=== PATIENT | female | born 1955 | race Caucasian/White ===

== ENCOUNTER 2025-07-09 14:25 | Outpatient (OUT) | payer MEDICARE, SELFPAY ==
[2025-07-09 15:20] LABS: Hematocrit 37.1 % (36.0-48.0); Hemoglobin 12.6 g/dL (12.0-16.0); Immature Granulocytes Abs Auto 0.01 10^3/uL (0.00-0.03); Immature Granulocytes Pct Auto 0.2 % (0.0-0.5); Lymphocytes Absolute Auto 1.6 10^3/uL (1.2-3.8); Mean Corpuscular HGB Conc 34.0 g/dL (29.9-35.2); Mean Corpuscular Hemoglobin 32.2 pg (26.7-34.0); Mean Corpuscular Volume 94.9 fL (81.0-99.0); Platelet Count 295 10^3/uL (150-450); Red Blood Count 3.91 10^6/uL (4.20-5.40); White Blood Count 6.1 10^3/uL (4.0-11.0)
--- NOTE | 2025-07-09 15:24 | PM.PRESUREVA ---
History of Present Illness History of Present Illness Chief complaint: Right kidney Stones Narrative: Patient presents for presurgical testing. Please see HPI from Dr. Denny dated June 29, 2025. Review of Systems ROS Narrative Please see ROS from Dr. Denny dated June 29, 2025. 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 (ICD-10) Melanoma ?C43.9 - Malignant melanoma of skin, unspecified (ICD-10) Knee pain ?M25.569 - Pain in unspecified knee (ICD-10) Back pain ?M54.9 - Dorsalgia, unspecified (ICD-10) Arthritis ?M19.90 - Unspecified osteoarthritis, unspecified site (ICD-10) Skin cancer ?C44.90 - Unspecified malignant neoplasm of skin, unspecified (ICD-10) Neck pain ?M54.2 - Cervicalgia (ICD-10) Pneumonia ?J18.9 - Pneumonia, unspecified organism (ICD-10) Vertigo ?R42 - Dizziness and giddiness (ICD-10) Palpitations ?R00.2 - Palpitations (ICD-10) PSVT (paroxysmal supraventricular tachycardia) ?I47.10 - Supraventricular tachycardia, unspecified (ICD-10) Kidney stone ?N20.0 - Calculus of kidney (ICD-10) Surgical History (Updated 07/09/25 @ 15:23 by Linda Robles NP) H/O lymph node excision ?Z98.890 - Other specified postprocedural states (ICD-10) History of tonsillectomy ?Z90.89 - Acquired absence of other organs (ICD-10) History of colonoscopy ?Z98.890 - Other specified postprocedural states (ICD-10) S/P epidural steroid injection ?Z92.241 - Personal history of systemic steroid therapy (ICD-10) History of surgery on arm ?Z98.890 - Other specified postprocedural states (ICD-10) History of radiofrequency ablation (RFA) of nerve of lumbar spine ?Z98.890 - Other specified postprocedural states (ICD-10) S/P cystoscopy ?Z98.890 - Other specified postprocedural states (ICD-10) History of foot surgery ?Z98.890 - Other specified postprocedural states (ICD-10) Family History (Updated 07/09/25 @ 14:56 by Linda Robles NP) Other Atrial fibrillation Congestive heart failure (CHF) Family history of Parkinson disease Family history of cancer Family history of coronary artery disease Family history of hypertension Family history of myocardial infarction Family history of renal failure Family history of stroke Social History (Updated 07/09/25 @ 14:49 by Linda Robles NP) Within the past year, how often did you have a drink containing alcohol: never Score interpretation: A score less than 3 is consistent with normal alcohol consumption. 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 Highest level of school completed/degree received: Master's degree Meds Home Medications and Allergies Home Medications ?Medication ?Instructions ?Recorded ?Confirmed ?Type cholecalciferol (vitamin D3) 10 10 mcg PO DAILY 07/09/25 07/09/25 History mcg (400 unit) capsule coenzyme Q10 30 mg capsule (Co 30 mg PO DAILY 07/09/25 07/09/25 History Q-10) lutein 6 mg capsule 6 mg PO DAILY 07/09/25 07/09/25 History magnesium aspartate HCl 61 mg (615 61 mg PO DAILY 07/09/25 07/09/25 History mg) tablet,delayed release (Maginex) Allergies Allergy/AdvReac Type Severity Reaction Status Date / Time adhesive tape Allergy Rash Verified 07/09/25 14:43 calcium Allergy kidney Verified 07/09/25 14:43 stones cat gut sutures Allergy abscess Uncoded 07/09/25 14:43 Exam Narrative Exam Narrative: Constitutional: Awake, alert, comfortable, well-appearing, appears much younger than stated age, nontoxic, interactive, vital signs as charted Head: Normocephalic, atraumatic Neck: Supple, normal appearance, normal range of motion, no meningeal signs, no lymphadenopathy Respiratory: No respiratory distress, breath sounds clear Cardiovascular: Regular rate and rhythm, strong and regular heart tones Abdomen: Nontender, normal bowel sounds, soft, no CVA tenderness Musculoskeletal: Normal gait, no swelling or edema Skin: No rashes or induration, no lesions, only visible skin inspected Neuro: No neurological deficits, normal sensation Psychiatric: Oriented ?3, normal affect Assessment and Plan Assessment and Plan (1) Kidney stone: Plan Right ESWL, possible cystoscopy, right stent placement scheduled with Dr. Denny July 16, 2025.
[2025-07-09 15:41] LABS: INR 1.00; Partial Thromboplastin Time 25.1 sec (22.3-36.2); Prothrombin Time 10.6 sec (9.0-11.6)
[2025-07-09 15:49] LABS: Anion Gap 12.0; Blood Urea Nitrogen 23.0 mg/dL (7.0-18.0); Calcium 9.1 mg/dL (8.5-10.1); Carbon Dioxide 30.0 mmol/L (21.0-32.0); Chloride 106 mmol/L (98-107); Estimated GFR (African America >60 (>=60 mL/min/1.73m^2); Estimated GFR (Non-African Ame >60 (>=60 mL/min/1.73m^2); Glucose 96 mg/dL (74-106); Potassium 4.0 mmol/L (3.5-5.1); Sodium 144 mmol/L (136-145)
== END 2025-07-09 14:26 | disposition home or self-care (01) ==
PROVIDERS: PCP Family Medicine; Visit Provider Urology
DX: Z01.812 Encounter for preprocedural laboratory examination (principal); Z01.818 Encounter for other preprocedural examination; N20.0 Calculus of kidney
CPT/HCPCS: 80048; 85025; 85610; 85730; G0463

== ENCOUNTER 2025-07-16 08:48 | Day surgery (SDC) | payer MEDICARE, SELFPAY ==
[2025-07-09 15:20] VITALS: BP 131/84; PULSE 73; TEMP 36.4; O2SAT 98; BMI 19.1
[2025-07-16] VITALS (11 sets, daily range): BP systolic 122–158; BP diastolic 65–92; PULSE 60–85; TEMP 36.3; O2SAT 95–100; BMI 19.1
--- NOTE | 2025-07-16 08:57 | XR_ITS ---
The [address] [address] Patient Name: TRENT SHUKLA MRN: [id number] date: 1955 Sex: F [facility]igned [facility] Current Patient [facility] Accession/Order Number: [id number] Exam Date: 07/16/2025 08:52 Report Date: 07/16/2025 09:08 At the request of: TAMMY SANTIAGO MD Procedure: XR abdomen 1V SINGLE VIEW ABDOMEN COMPARISON: None CLINICAL DATA: Presurgical evaluation for bilateral nephrolithiasis. Supine view the abdomen and pelvis was obtained. There is air and stool within the colon. There is also air within nondistended small bowel. No soft tissue masses are noted. The right kidney is appears ptotic. There are calcifications in the area which may be stones measuring up to 5 mm in size. There are also suspected calcified stones at the left kidney measuring 5 mm. There is dextroscoliotic curvature and degenerative change at the spine. XR/XR abdomen 1V IMPRESSION: SUSPECTED BILATERAL NEPHROLITHIASIS. Impression dictated by: Debbie Morse M.D. 07/16/2025 9:08 AM Dictation Location: [place] [address] Electronically authenticated by: [id number] Y Date: 07/16/2025 09:08
[2025-07-16] MEDS: CEFAZOLIN SODIUM 2 GM/50 ML D5W PREMIX IV (11:11)
--- NOTE | 2025-07-16 12:13 | P.URON_ITS ---
Urology Surgery Operative Note Operative Note Procedure Date: 07/16/25 Time Out Performed: yes Pre-op Diagnosis: Right nephrolithiasis Post-op Diagnosis: same as pre-op Procedures performed: 1. Right ESWL. Anesthesia: General-LMA Primary Surgeon: Alphonse Denny Complications: None Estimated blood loss (mL): 0 Findings: Right nonobstructing renal calculi Specimens: None Drains: None Indications for Procedures: This lady has 2 stones in her right kidney. The larger 1 is just about a centimeter in size and in the upper pole. The smaller 1 is in the lower pole. She now presents for right ESWL and possible cystoscopy right stent placement. She has signed an informed consent after risks were explained. Some of these risks include bleeding, perinephric hematoma, infection and anesthesia to name a few. Detailed description of Procedure: The patient was brought to the Operating Room and placed on Siemens electromagnetic lithotripsy treatment table in the supine position. SCDs were placed on their lower extremities and turned on and functioning during the entire case. Timeout was done by all parties in the room. We all agreed upon the patient's identification and the planned procedures for this patient. General Anesthesia was then administered via LMA. Treatment head was then brou ght to the patient's correct side. While using flourscopy the larger upper pole right stone was identified and lined up into the crosshairs. We then began applying shocks. We started at a power level 2.0 and she had some rather immediate ectopy. We had to stop the procedure and rotate the table and restart. We are able to deliver more shocks but as we raised the power level to 2.5 she developed more ectopy. We had to stop rotate the table and we were able to finish the procedure at power level 2.2. Intermittent fluoroscopy revealed that the stone was steadily fragmenting. It was spreading out and turning dramatically synthetic filament extruder in intensity. We applied a total of 3000 shocks. We seem to to have satisfactory fragmentation. The small lower pole stone was still visible and did not fragment. The procedure was then terminated. She was then transferred to a [facility] bed and wheeled to PACU in stable condition.
--- NOTE | 2025-07-16 13:32 | PC.NURSE ---
1325; pt voids without difficulty,urine watermelon colored
== END 2025-07-16 13:40 | disposition home or self-care (01) ==
LOC: SURGOUT 08:48
PROVIDERS: PCP Family Medicine; Visit Provider Urology
PROC: (CPT 50590; principal; 2025-07-16 10:05)
DX: N20.0 Calculus of kidney (principal); R31.9 Hematuria, unspecified; M85.80 Other specified disorders of bone density and structure, unspecified site; Z85.820 Personal history of malignant melanoma of skin; I47.10 Supraventricular tachycardia, unspecified
CPT/HCPCS: 50590; 36415; 74018; J0690; J1100; J1885; J2405; J2704; J3010

== ENCOUNTER 2025-08-03 13:03 | Outpatient (OUT) | payer MEDICARE, BC, SELFPAY ==
--- OUTSIDE RECORDS SUMMARY | 2025-08-03 13:09 | XMS_ITS | Clinical Summary ---
Author Organization [facility] Address [address] [place] [address] Phone Care Team Providers Care Tattoo Identifier Name Role Phone Meghann Debbie Griffin GARCIA Primary Care Provider [phone] Allergies Active AllergyReactionsCriticalityNoted DateCommentsAdhesive Tape-SiliconesOther ,PtuyOpzstv74/01/2008 Patient allergy to tape and steri strips Calcium TzxbhazqvKxmtpEypz11/06/2022 Other Reaction(s): Kidney stone causes increased number of kidney stones causes increased number of kidney stones SbglmrbXllqj50/06/2025 Non-healing Medications MedicationSigDispense QuantityRefillsLast FilledStart DateEnd DateStatus cholecalciferol (Vitamin D-3) 50 mcg (2,000 units) capsule Take 1 capsule (50 mcg) by mouth once a week.Active lutein-zeaxanthin 25-5 mg capsule Take 40 mg by mouth once daily.Active coenzyme Q-10 100 mg capsule Take 1 capsule (100 mg) by mouth once daily.Active MAGNESIUM GLYCINATE ORAL Take 1 tablet by mouth early in the morning..Active magnesium oxide 500 mg capsule Take 400 mg by mouth once daily.07/08/2025Discontinued(Therapy completed) Active Problems ProblemNoted DateDiagnosed DateBody mass index (BMI) of 19.9 or less in adult 07/08/2025Never smoked lecdygf9907/08/2025Dyspnea on oppqdfob81/08/2025Iliotibial band /06/2025ilateral renal cysts07/06/20258714Cbpcqjmahdytpa37/06/2025 Osteopenia of multiple sites07/06/20250363Mmfiojijumo60/06/2025PSVT (paroxysmal supraventricular tachycardia)07/06/2025Encounter to establish care07/06/2025PVD (peripheral vascular disease)07/05/2023rotein-calorie opxhmfttmhim31/01/2023 Xgtqxk7201/19/2022Vasovagal yvfaljg0701/19/2022 Overview (07/06/2025): [place] / IV DJD (degenerative joint disease), ankle and foot, right07/08/2021History of melanoma vhxtcbfo66/26/2017Medullary sponge kidney of both icjqiyo5906/26/2017 Encounters DateTypeDepartmentCare AtyxDiwtiyowhpc81/21/2025Orders Only [facility] [address] [place] [address] Anthony Toussaint, 07/10/2025Telephone [address] [address] Mackenzie Chirinos RN Error (VOID this visit)07/09/2025Telephone [address] [address] Ann Sarmiento RN 07/08/2025 9:20 AM EDTOffice Visit [address] [address] Anthony Toussaint, Dyspnea on exertion; Body mass index (BMI) of 19.9 or less in adult; Never smoked tobacco; Diastolic dysfunction, left ventricle Discharge Disposition: Home07/08/20254307Aucvvq59/06/2025Orders Only [address] [address] Randi Quick LPN from Last 3 Months Immunizations ImmunizationAdministration DatesNext DueFlu vaccine, trivalent, preservative free, HIGH-DOSE, age 65y+ (Fluzone)06/10/2025,06/12/2024,06/27/2021,07/09/2020, 07/21/2019Pneumococcal conjugate vaccine, 13-valent (PREVNAR 13)07/21/2019 Pneumococcal conjugate vaccine, 20-valent (PREVNAR 20)10/21/2024Pneumococcal polysaccharide vaccine, 23-valent, age 2 years and older (PNEUMOVAX 23) 07/22/2018RESPIRATORY SYNCYTIAL VIRUS (RSV), ELIGIBLE PTS, 0.5 ML (ABRYSVO)07/03/2023Zoster vaccine, recombinant, adult (SHINGRIX)06/12/2018, 04/10/2018 Family History Medical HistoryRelationNameCommentsCancerBrotherHeart diseaseBrotherKidney diseaseBrotherHyperlipidemiaFatherHypotensionFatherAtrial fibrillationMother HyperlipidemiaMotherRelationNameStatusCommentsBrotherFatherMother Social History Tobacco UseTypesPacks/DayYears UsedDateSmoking Tobacco: NeverSmokeless Tobacco: Never Tobacco Cessation:Counseling Given: Not Answered Alcohol UseStandard Drinks/WeekCommentsNever0 (1 standard drink = 0.6 oz pure alcohol)CommentsUnknownSex and Gender InformationValueDate RecordedSex Assigned at BirthNot on fileLegal UxqQzymxn04/08/2025 4:00 PM EDTGender Identity Not on fileSexual OrientationNot on file Last Filed Vital Signs Vital SignReadingTime TakenCommentsBlood Jdlgolhb987/8607/08/2025 9:31 AM EDT Qlxgt884307/08/2025 9:28 AM EDTTemperature--Respiratory Rate--Oxygen Saturation-- Inhaled Oxygen Concentration--Csswaa91.9 kg (110 lb)07/08/2025 9:28 AM EDTHeight 162.6 cm (5' 4 )07/08/2025 9:28 AM EDTBody Mass Index18.8807/08/2025 9:28 AM EDT Plan of Treatment DateTypeDepartmentCare Team (Latest Contact Info)Toxgkrepgfm44/09/2026 10:10 AM EDTOffice Visit [facility] [address] [facility] [address] [place] [address] Anthony Toussaint DO [address] [facility] 2, [address] [place] [address] Health MaintenanceDue DateLast DoneCommentsCT Qrcqidvnyrgq1953Colonoscopy 3Colorectal Cancer Iawzuykpv1953FIT-DNA (Cologuard)1953FIT 1953Lipid Panel1953Medicare Annual Wellness Visit (AWV)1953 Iwtpoecqermjg1953Skin Cancer Rgofbraue1953MMR Vaccines (1 of 1 - Standard series)1954iabetes Qyaztyhwn34/04/1971Hepatitis C Screening 1971DTaP/Tdap/Td Vaccines (1 - Tdap)06/04/19750471Oylisfelo54/04/1993Bone Density Scan2018COVID-19 Vaccine (2024- season), 12/11/2024, 06/12/2024, Additional history existsZoster VaccinesCompleted 06/12/2018, 04/10/2018RSV High Risk: (Elderly (60+) or Population) Ylshalkoi06/03/2023Pneumococcal QkmflqrAgxyynnsi02/21/2025, 07/21/2019, 07/22/2018Influenza RybrgliQucdafcvq79/10/2025, 06/12/2024, 06/27/2021, Additional history existsHIB VaccinesAged OutNo longer eligible based on patient's age to complete this topicHPV VaccinesAged OutNo longer eligible based on patient's age to complete this topicHepatitis A VaccinesAged OutNo longer eligible based on patient's age to complete this topicHepatitis B VaccinesAged OutNo longer eligible based on patient's age to complete this topicIPV Vaccines Aged OutNo longer eligible based on patient's age to complete this topic Meningococcal VaccineAged OutNo longer eligible based on patient's age to complete this topicRotavirus VaccinesAged OutNo longer eligible based on patient's age to complete this topic Procedures Procedure NamePriorityDate/TimeAssociated DiagnosisCommentsNON-[facility] HIE HIGH SENSITIVE IOWQyzqrxf57/21/2025 10:47 AM EDT NON-[facility] HIE D-DIMER HIGH PDKIGXWSFKPNyhoggw74/21/2025 10:47 AM EDT ECG 12-VPFSBtloxlb66/08/2025 9:20 AM EDT Dyspnea on exertion from Last 3 Months Results * (ABNORMAL) NON-[facility] HIE High Sensitive CRP (07/21/2025 10:47 AM EDT)Component ValueRef RangeTest MethodAnalysis TimePerformed AtPathologist SignatureNON- HIE High Sensitive CRP1.9(H)0.0 - 0.9 mg/LFBellevue Hospital Ctr Comment:Cardiovascular Risk Classification (AHA/CDC) hsCRP < 1.0 mg/l low relative risk for CVD hsCRP 1.0-3.0 mg/l average relative risk for CVD hsCRP > 3.0 mg/l high relative risk for CVD hsCRP > 7.5 mg/l active inflammation* Two results two weeks apart and averaged provide a more stable estimateof hsCRP level. *hsCRP levels > 7.5 mg/l may suggest infection that can limit the use of this marker for estimation of CVD risk.PERFORMED BY:[facility] [facility].[place], [place] [phone] MEDICAL DIRECTORLINNEA YANES M.D.Specimen (Source)Anatomical Location / Laterality Collection Method / VolumeCollection TimeReceived TimeOKLAHOMA STATE UNIVERSITY [facility] [place] Lab- Serum specimen 07/21/2025 10:47 AM EDT Narrative Authorizing ProviderResult TypeResult StatusWilianna Toussaint [facility] BLOOD ORDERABLESFinal ResultPerforming OrganizationAddressCity/State/ZIP CodePhone Number [facility] [address] [place] [address], [facility] [address] [place] [address] * NON-[facility] HIE D-Dimer High Sensitivity (07/21/2025 10:47 AM EDT)ComponentValueRef RangeTest MethodAnalysis TimePerformed AtPathologist SignatureNON- HIE D- Dimer High Sensitivity<2000 - 243 ng/mLMercy Memorial Hospital CtrComment: The reference range for D-dimer is <243 ng/mL D-dimer units. D-dimer results must be used in conjunction with a clinical pretest probability (PTP) assessment model for deep vein thrombosis (DVT) and pulmonary embolism (PE). Results <230 ng/mL d-dimer units can be used as a negative predictor in patients with low or moderate probability for DVT/PE. Results above the exclusion threshold of 230 ng/ml D-dimer units for DVT/PE may indicate the need for further diagnostic testing. D-Dimer can be increased in hospitalized patients due to co-morbid conditions. A hematocrit value greater than 55% may lead to inaccurate results in coagulation testing. Patients having hematocrit values >55% require a special collection tube for coagulation studies. Please contact the laboratory at [phone] for redraw instructions.PERFORMED BY:[facility] [place], [place] [phone] MEDICAL DIRECTORLINNEA YANES M.D.Specimen (Source)Anatomical Location / LateralityCollection Method / VolumeCollection TimeReceived TimeFR Platelet poor plasma gbwopfea50/21/2025 10:47 AM EDT Narrative Authorizing ProviderResult TypeResult StatusMarisolm S Norbert DOLAB BLOOD ORDERABLESFinal ResultPerforming OrganizationAddressCity/State/ZIP CodePhone Number [facility] [address] [place] [address], [facility] [address] [place] [address] * ECG 12 Lead (07/08/2025 9:20 AM EDT)Specimen (Source)Anatomical Location / LateralityCollection Method / VolumeCollection TimeReceived Time Narrative [facility] - 07/08/2025 10:15 AM EDT Normal sinus rhythm normal ECG Authorizing ProviderResult TypeResult StatusWileonm S Norbert DOECG ORDERABLES Final ResultPerforming OrganizationAddressCity/State/ZIP CodePhone Number [facility] from Last 3 Months Insurance Care Teams Team MemberRelationshipSpecialtyStart DateEnd Debbie Zavaleta DO [address] [place] [address] PCP - GeneralFamily Nfmaflgv52/8/25
--- OUTSIDE RECORDS SUMMARY | 2025-08-03 13:09 | XMS_ITS | Encounter Summary ---
Author Organization [facility] Address [address] [place] [address] Phone Care Team Providers Care Awake Overnight Counselor Name Role Phone Meghann Debbie Moya DO Primary Care Provider [phone] Encounter Details DateTypeDepartmentCare Team (Latest Contact Info)Rlkffxynluo44/21/2025Orders Only [facility] [address] [place] [address] Anthony Toussaint DO [address] [place] [address] 2, [address] [address] Social History Tobacco UseTypesPacks/DayYears UsedDateSmoking Tobacco: NeverSmokeless Tobacco: NeverAlcohol UseStandard Drinks/WeekCommentsNever0 (1 standard drink = 0.6 oz pure alcohol)CommentsUnknownSex and Gender InformationValueDate Recorded Sex Assigned at BirthNot on fileLegal YyyHxzijs86/08/2025 4:00 PM EDTGender IdentityNot on fileSexual OrientationNot on filedocumented as of this encounter Plan of Treatment DateTypeDepartmentCare Team (Latest Contact Info)Hxrdwhaghqz76/09/2026 10:10 AM EDTOffice Visit [facility] [address] [address] Anthony Toussaint DO [address] [place] [address] [address], [address] [place] [address] documented as of this encounter Procedures Procedure NamePriorityDate/TimeAssociated DiagnosisCommentsNON-[facility] HIE HIGH SENSITIVE WVEXhcuipz33/21/2025 10:47 AM EDT NON-[facility] HIE D-DIMER HIGH ZWGSNXOBFZHPjlilfo07/21/2025 10:47 AM EDT documented in this encounter Results * (ABNORMAL) NON-[facility] HIE High Sensitive CRP (07/21/2025 10:47 AM EDT)Component ValueRef RangeTest MethodAnalysis TimePerformed AtPathologist SignatureNON-[facility] HIE High Sensitive CRP1.9(H)0.0 - 0.9 mg/LFSelect Medical Specialty [facility] C[facility] Comment:Cardiovascular Risk Classification (AHA/CDC) hsCRP < [...] this marker for estimation of CVD risk.PERFORMED BY:[facility] [facility], [place] [phone] MEDICAL DIRECTORLINNEA YANES M.D.Specimen (Source)Anatomical Location / Laterality Collection Method / VolumeCollection TimeReceived TimeOKLAHOMA [facility] [place] Lab- Serum specimen 07/21/2025 10:47 AM EDT Narrative Authorizing ProviderResult TypeResult StatusWilianna Toussaint [facility] BLOOD ORDERABLESFinal ResultPerforming OrganizationAddressCity/State/ZIP CodePhone Number [facility] [address] [place] [address], [facility] [address] [place] [address] * NON-[facility] HIE D-Dimer High Sensitivity (07/21/2025 10:47 AM EDT)ComponentValueRef RangeTest MethodAnalysis TimePerformed AtPathologist SignatureNON-[facility] HIE D- Dimer High Sensitivity<2000 - 243 ng/mLSt. John Of God Hospital CtrComment: The reference range for D-dimer [...] coagulation studies. Please contact the laboratory at [phone] for redraw instructions.PERFORMED BY:[facility] [facility]ITAL[facility]aden[place], [place] [phone] MEDICAL DIRECTORLINNEA YANES M.D.Specimen (Source)Anatomical Location / LateralityCollection Method / VolumeCollection TimeReceived TimeOKLAHOMA [facility]TH [facility] [place] Platelet poor plasma ycyhsand46/21/2025 10:47 AM EDT Narrative Authorizing ProviderResult TypeResult StatusWilianna Toussaint [facility] BLOOD ORDERABLESFinal ResultPerforming OrganizationAddressCity/State/ZIP CodePhone Number [facility] [address] [place] [address], [facility] [address] [place] [address] documented in this encounter Visit Diagnoses Not on filedocumented in this encounter Additional Health Concerns AssessmentNoted TimeA fall risk assessment has been completed for the patient 07/08/2025 9:28 AM EDTdocumented as of this encounter Care Teams Team MemberRelationshipSpecialtyStart DateEnd Date Debbie Zavaleta DO [address] [place] [address] PCP - GeneralFamily Dnjgqisg24/8/25documented as of this encounter
--- OUTSIDE RECORDS SUMMARY | 2025-08-03 13:09 | XMS_ITS | Clinical Summary ---
Author Organization [facility] Address [address] [place] [address] Care Team Providers Care Pastor Name Role Phone Unavailable Primary Care Provider Unavailabl e Allergies No known active allergies Medications MedicationSigDispense QuantityRefillsLast FilledStart DateEnd DateStatus Cholecalciferol 50 MCG (1999) capsule Take 1 capsule by mouth Once a week.Active Lutein-Zeaxanthin 25-5 MG capsule Take 40 mg by mouth daily.Active Magnesium 500 MG capsule Take 400 mg by mouth daily.Active Bucyrus-3 Fatty Acids (Bucyrus-3 Fish Oil) 1000 MG capsule Take 1,000 mg by mouth daily.Active Social History Tobacco UseTypesPacks/DayYears UsedDateSmoking Tobacco: NeverSmokeless Tobacco: NeverCommentsUnknownSex and Gender InformationValueDate RecordedSex Assigned at BirthNot on fileLegal DtbCcdypp17/06/2017 6:55 PM ESTGender Identity Not on fileSexual OrientationNot on file Last Filed Vital Signs Vital SignReadingTime TakenCommentsBlood Pressure--Pfbtq701308/02/2021 4:05 PM EDT Ycrttzwlqut75.2 ??C (97.1 ??F)08/02/2021 4:05 PM EDTRespiratory Rate--Oxygen Eoigckkuys44%08/02/2021 4:05 PM EDTInhaled Oxygen Concentration--Ktcocc50.2 kg (115 lb)08/02/2021 4:05 PM TQEVakuac991.6 cm (5' 4 )08/02/2021 4:05 PM EDTBody Mass Index19.7408/02/2021 4:05 PM EDT Plan of Treatment Health MaintenanceDue DateLast DoneCommentsDEXA SCAN RRMIPZKNLG1955 HEPATITIS C VIRUS OBTUJBMWD38/04/1493JZADFWS1953TDAP (ADULT)1972 CERVICAL CANCER SCREENING LIUTNENQNF69/04/1974LIPID YEDBWYAHN79/04/1993MAMMOGRAM SCREENING NCIHDCMIEZ17/04/1993COLORECTAL CANCER SCREENING SSKOQJRACO87/04/1998 PNEUMOCOCCAL VACCINE SERIES (1 of 1 - PCV)2003ZOSTER (SHINGLES) VACCINE (1 of 2)2003COVID-19 VACCINE (1 - 2024- season)2025INFLUENZA VACCINE (#1)2025RSV VACCINE (1 - 1-dose 75+ series)2028HEP B VACCINEAged Out No longer eligible based on patient's age to complete this topic Insurance
--- OUTSIDE RECORDS SUMMARY | 2025-08-03 13:09 | XMS_ITS | Clinical Summary ---
Author Organization [facility] Address [address] [place] [address] Care Team Providers Care Manager Communication Name Role Phone Sanya Gould MD Unavailable [phone] Debbie Zavaleta DO Primary Care Provider + Allergies Active AllergyReactionsCriticalityNoted DateCommentsAdhesive Tape (Rosins)Rash, Other: See ZyjtqvhtKxglmc82/01/2008 Patient allergy to tape and steri strips Calcium CarbonateOther: See LdcljmhaCffr07/06/2022 causes increased number of kidney stones Medications MedicationSigDispense QuantityRefillsLast FilledStart DateEnd DateStatus lutein-zeaxanthin 25-5 mg cap Take 40 mg by mouth once daily. Active coenzyme Q10 (COENZYME Q-10) 100 mg cap capsule Take 100 mg by mouth once daily.Active Magnesium Oxide 500 mg cap Take 400 mg by mouth once daily.Active Cholecalciferol, Vitamin D3, 2,000 unit cap Take 1 capsule by mouth once each week.Active Fluorouracil (EFUDEX) 5 % cream Indications:Actinic keratosisApply to affected area two times a day. 40 g 4Active Active Problems ProblemNoted DateDiagnosed DatePVD (peripheral vascular disease)07/05/2023 Protein-calorie malnutrition, unspecified fqqcbdfa42/01/2023Vasovagal syncope 01/19/2022 Overview (01/19/2022): [place] / IV Assessment & Plan (01/19/2022 1:29 PM EDT): Assessment: typically triggered by needles / IV Skin Cancer, Melanoma, Left Shoulder(HCC)01/19/20220671Uydwbwqfd52/21/2022Fat pad atrophy of foot2DJD (degenerative joint disease), ankle and foot, right 07/08/2021Metatarsalgia of right foot07/06/2020Hammer toes of both feet 07/06/2020Hallux rigidus of both feet07/06/2020Left elbow pain01/09/2018Trigger point01/09/2018Muscle /11/2018Calculus of ewggsl7006/26/2017Family history of kidney rmkopg6206/26/2017Medullary sponge kidney of both kidneys 06/26/2017History of melanoma ulinmmrf42/26/2017Arthritis of knee06/26/2017 Primary osteoarthritis of right knee01/21/2016Pain in joint, pelvic region and thigh09/11/2014Hamstring tear06/07/2012Metatarsal stress sllyanft81/24/2012 MELANOMA Left Lattisimus Dorsi area12/12/2007PSVT (paroxysmal supraventricular tachycardia) Assessment & Plan (01/19/2022 1:29 PM EDT): Assessment: asymptomatic - no meds currently. Follows with Dr. Gould Assessment & Plan (07/12/2021 8:37 AM EDT): Assessment: follows with Dr. Gould - no management recommended. Resolved Problems ProblemNoted DateDiagnosed DateResolved DateArthritis of hip Encounters DateTypeDepartmentCare KigoYtkedpplehc27/07/9890Mpbvgg61/21/2025 2:00 PM EDT Office Visit Cardiology [address] [place] [address] Randi Daniel APRN.CEMENT CAR DUMPER SOB (shortness of breath) (Primary Dx)05/20/2025Travelfrom Last 3 Months Immunizations ImmunizationAdministration DatesNext DueCOVID-19 original vaccine, age 12+ yr, monovalent (PFIZER-BIONTECH - JERONIMO TOP)2COVID-19 original vaccine, age 12+ yr, monovalent (PFIZER-BIONTECH - PURPLE TOP)05/30/2021,12/01/2020, 11/10/2020influenza (HD-IIV3) vaccine, age 65+ yr, high dose, trivalent, PF (FLUZONE HIGH-DOSE)06/27/2021,07/21/2019influenza (IIV3) vaccine, trivalent (AFLURIA, FLULAVAL, FLUVIRIN, FLUZONE)07/05/2012influenza (IIV3) vaccine, trivalent, PF (AFLURIA, FLUARIX, FLULAVAL, FLUVIRIN, FLUZONE)06/27/2013influenza (IIV3) vaccine, trivalent, PF, intradermal (FLUZONE INTRADERMAL)07/27/2014 influenza (IIV4) vaccine, quadrivalent (AFLURIA, FLULAVAL, FLUZONE)07/16/2017, 06/28/2016influenza (LAIV) vaccine, nasal, unspecified wlulkoononn04/09/2020 influenza vaccine, whole virus07/18/2011novel influenza (H1U9-30) vaccine, PF 09/13/2009pneumococcal conjugate (PCV13) vaccine, 13 valent (PREVNAR 13) 07/21/2019pneumococcal polysaccharide (PPV23) vaccine, 23 valent (PNEUMOVAX 23) 07/22/2018tetanus diphtheria pertussis (Tdap) vaccine, age 7+ yr (ADACEL, BOOSTRIX)11/29/2019zoster (RZV) vaccine, recombinant (SHINGRIX)06/12/2018, 04/10/2018,09/26/2012zoster (ZVL) vaccine, live (ZOSTAVAX)09/28/2011 Family History Medical HistoryRelationCommentsCoronary Artery DiseaseFatherdeceased 79No Ocular DiseaseFatherGlaucomaMotherHeart FailureMotherdeceased 87Anesthesia ProblemsNo Family HistoryRelationStatusCommentsFatherDeceasedMotherDeceased Social History Tobacco UseTypesPacks/DayYears UsedDateSmoking Tobacco: NeverSmokeless Tobacco: Never Tobacco Cessation:Counseling Given: Not Answered Alcohol UseStandard Drinks/WeekCommentsNo0 (1 standard drink = 0.6 oz pure alcohol)PHQ-2AnswerDate RecordedPHQ-2 viqux8761Area Deprivation Index AnswerDate RecordedNational Score (1-100), lower number is lower risk65 03/21/2023State Score (1-10), lower number is lower xmod1343Data from: https://www.neighborhoodatlas.medicine.[facility].edu/. Last address used for calculation[address]CommentsNoSex and Gender Information ValueDate RecordedSex Assigned at AcbloRknxze69/18/2022 12:56 PM EDTLegal Sex Mdgwgt3009/01/2012 8:12 AM ESTGender GpmdlqehIqcepo09/18/2022 12:56 PM EDTSexual ZzgxeecdilqWfbqxdko57/18/2022 12:56 PM EDTOccupationIndustryJob Start DateJob End DateAdministrative ASISTANTNot on fileNot on fileNot on file Last Filed Vital Signs Vital SignReadingTime TakenCommentsBlood Hmfqdldx641/7208 1:31 PM EDT Gwvgw856605/21/2025 1:31 PM FMXUauhzragxjo63.4 ??C (97.6 ??F)01/25/2022 11:53 AM EDTRespiratory Ggav826801/25/2022 12:20 PM EDTOxygen Vxgncnpxma86%05/21/2025 1:31 PM EDTInhaled Oxygen Concentration--Imgzat05.2 kg (110 lb 10.7 oz)05/21/2025 1:31 PM AJEFtoctz032.5 cm (5' 4.75 )05/21/2025 1:31 PM EDTBody Mass Index18.56 05/21/2025 1:31 PM EDT Plan of Treatment DateTypeDepartmentCare Team (Latest Contact Info)Ciemyyyimkt82/18/2025 10:40 AM ESTOffice Visit Dermatology [address] [place], [place] [phone] [place] [address] [place], [place] [phone] 6 MONTH FBSE10/29/2025 11:00 AM ESTOffice Visit Cardiology [address] [place] [address] Chin Haines MD [address] [facility] [place] [address] return in a year in JulHealth MaintenanceDue DateLast DoneCommentsAnxiety Qdezbocdz49/04/1971Depression Lpmjozpmm73/04/1971Mammogram Anslbmunh01/04/1993CT Uabqisytuccx69/04/1998Cologuard (FIT-DNA)06/04/19984069Bkcpoeewdtx30/04/1998 Colorectal Cancer Ldlzmpxvt71/04/1998Fecal Occult Blood1998Sigmoidoscopy 1998Bone Density Mkegrxjst91/04/2018Medicare Annual Wellness Visit 07/01/2019Advance Directive Abbiaqwgup28/01/2025Covid-19 Vaccine ( season)/, 06/12/2024, 12/13/2023, Additional history exists Influenza Vaccine (#1)509/08/2024, 06/27/2023, 06/19/2022, Additional history existsDiabetes Esiyciibe52/03/2022, 07/05/2020, 01/30/2018, Additional history existsLipid Uvvqmvhaq84/03/2022, 07/05/2020, 01/30/2018DTaP,Tdap,Td Vaccine (2 - Td or Tdap)Shingrix GveqkylLosvtnwjc60/12/2018, 04/10/2018, 09/26/2012, Additional history exists Hepatitis C FwhnbxyctKugxytcgv88/01/2019RSV ZapeifwOeurogzya81/03/2023 Pneumococcal Vaccine: 50+Yayqyvxjv08/21/2025, 07/21/2019, 07/22/2018 Medical Devices ImplantedTypeAreaManufacturerDevice IdentifierShelf Expiration DateModel / Serial / LotPlate 6 Hole Curved Left - [id number] Implanted:Qty: 1 on [facility]16/[facility] FHCPlateRight: Bone - FootSTRYKER [id number] / / Kenan Screw 26 X 30mm [id number] Implanted:Qty: 1 [facility]: Bone - FootSMALL BONE [id number] / / Screw Variax 2.7mm T7 Titanium 16mm Bone Lock Lock Plate System Nonsterile - [id number] Implanted:Qty: 2 on [facility]16/2020 [facility] Bone - FootSTRYKER [id number] / / Screw Variax 2.7mm T7 Titanium 14mm Bone Lock Lock Plate System Nonsterile - [id number] Implanted:Qty: 1 on 12/16/2020 [facility]: Bone - FootSTRYKER [id number] / / Screw Variax 2.7mm 10mm Bone T7 Drive Locking Nonsterile Foot - [id number] Implanted:Qty: 1 on 12/16/2020 [facility]: Bone - FootSTRYKER [id number] / / Procedures Procedure NamePriorityDate/TimeAssociated DiagnosisCommentsECG COMPLETE 05/21/2025 1:41 PM EDT COMPREHENSIVE METABOLIC RVOKZNexwzyc01/07/2022 8:25 AM EST Family history of kidney stones LIPID PANEL, MKBAIJFZriwmij19/07/2022 8:25 AM EST Hyperlipidemia, unspecified hyperlipidemia type HEPATITIS C VIRUS (HCV) RNA, QUANTITATIVE PCR, PLASMA/HXXYLNjhfasy91/01/2019 2:26 PM EDT Abnormal liver enzymes from Last 3 Months or Most Recently Relevant to Health Maintenance Results * ECG COMPLETE (05/21/2025 1:41 PM EDT)ComponentValueRef RangeTest Method Analysis TimePerformed AtPathologist SignatureVentricular Prcz37BJRHOBVH AND VASCULAR INSTITUTEAtrial Cymm86GOUNIONT AND VASCULAR INSTITUTEP-R Vlxrlwrl974 msHEART AND VASCULAR INSTITUTEQRS Njlflhly32zvQCUBQ AND VASCULAR INSTITUTEQT Hvasjwpr831kqKKAHW AND VASCULAR INSTITUTEQTC Calculation (Stanislav)422msHEART AND VASCULAR INSTITUTECalculated P Qwbi13zhqkrdwTVOLK AND VASCULAR INSTITUTE Calculated R Wiwk40dvlhovtTRXSZ AND VASCULAR INSTITUTECalculated T Axis62 degreesHEART AND VASCULAR INSTITUTESpecimen (Source)Anatomical Location / LateralityCollection Method / VolumeCollection TimeReceived Time05/21/2025 1:41 PM EDT Impressions [facility] - 05/22/2025 11:56 AM EDT NORMAL SINUS RHYTHM POSSIBLE LEFT ATRIAL ENLARGEMENT BORDERLINE ECG Confirmed by MD ALVARENGA QARAB ([id number]) on 05/22/2025 11:56:00 AM Narrative [facility] - 05/22/2025 11:56 AM EDT NAME : ARUORA SHUKLA PID : [id number] : 1955 Gender : Female Race : ORD : Procedure Date : May 21 2025 13:41:59 Edit Date : May 22 2025 11:56:04 Diagnosis: NORMAL SINUS RHYTHM POSSIBLE LEFT ATRIAL ENLARGEMENT BORDERLINE ECG Confirmed by MD ALVARENGA QARAB ([id number]) on 05/22/2025 11:56:00 AM Test Reason : Location : 211 : [facility] ?? Overread By : MD ALVARENGA QARAB Edited By : MD ALVARENGA QARAB Referred By : Randi Daniel Acquired by : JOSSELIN YADAV, Authorizing ProviderResult TypeResult StatusCcf ProviderEKGFinal Result Performing OrganizationAddressCity/State/ZIP CodePhone Number [facility] [address] [place] [address] * (ABNORMAL) LIPID PANEL BASIC (09/06/2022 8:25 AM EST)ComponentValueRef Range Test MethodAnalysis TimePerformed AtPathologist AnwwbmsrnNOUQIJKYOWG291(A)120 - 200 mg/dlMARIETTA [facility] PFLOeyhkcjsvwnh45bq/dlMARIETTA [facility] FOLNJI72 mg/dlMAR[facility]ETTA [facility] QBXYNE036md/dlMAR[facility]TA [facility] TOSJGUL3yu/dlMAR[facility] LABSpecimen (Source)Anatomical Location / LateralityCollection Method / VolumeCollection TimeReceived TimeBloodBLOOD SPECIMEN / Cpsjrru1509/06/2022 8:25 AM EST Narrative Authorizing ProviderResult TypeResult StatusSung Estuardo Gould MDLABORATORYFinal ResultPerforming OrganizationAddressCity/State/ZIP CodePhone Number [facility] [address] [place] [address] * COMP METABOLIC PANEL (09/06/2022 8:25 AM EST)ComponentValueRef RangeTest MethodAnalysis TimePerformed AtPathologist AdveadfyfKtdsble40jc/dLMARIETTA OSTEOP[facility]IC LABCreatinine0.7mg/dLMARIETTA OSTEOP[facility]IC LABALT (SGPT)30U/LC[facility] EGZTTH72M/LCBR[facility] LABSpecimen (Source)Anatomical Location / LateralityCollection Method / VolumeCollection TimeReceived TimeBloodBLOOD SPECIMEN / Mhmaada1209/06/2022 8:25 AM EST Narrative Authorizing ProviderResult TypeResult StatusRupinder Nelson APRN.NICOLELABORATORYFinal ResultPerforming OrganizationAddressCity/State/ZIP CodePhone Number [facility] [address] [place] [address] * HCV QUANT RNA BY PCR (12/30/2018 2:26 PM EDT)ComponentValueRef RangeTest MethodAnalysis TimePerformed AtPathologist SignatureHCV RNA by PCRHCV RNA not detected by PCR.IU/mL12/31/2018 9:51 PM EDTCMercy Health Lorain Hospital Laboratories Comment: Reference Range: Negative for HCV RNA The Linear Range of this assay is 15 IU/mL to 100,000,000 IU/mL. Specimen (Source)Anatomical Location / LateralityCollection Method / Volume Collection TimeReceived TimeBlood specimen (specimen)12/30/2018 2:26 PM EDT 12/30/2018 2:28 PM EDT Narrative Authorizing ProviderResult TypeResult StatusMillicent Schneider MDLABORATORY Final ResultPerforming OrganizationAddressCity/State/ZIP CodePhone Number [facility] [address] [facility] [place] [address] [facility] [address] [place] [address] from Last 3 Months or Most Recently Relevant to Health Maintenance Insurance * Guarantor: Aurora Shukla Kimber TypeRelation to PatientDate of BirthPhone Billing AddressSelf PmhXmwb4706/04/1955 [address] [place] [address] Advance Directives TypeDate RecordedPatient RepresentativeExplanationAdvance Directive(s)12/16/2020 8:25 AM Care Teams Team MemberRelationshipSpecialtyStart DateEnd Debbie Zavaleta DO [address] [place] [address] PCP - GeneralFamily Medicine03/13/22 Sanya Gould MD [address] [place] [address] Primary Staff PhysicianCardiology12/17/18
--- OUTSIDE RECORDS SUMMARY | 2025-08-03 13:09 | XMS_ITS | Clinical Summary ---
Author Organization [facility] Address [address] [facility] [place] [address] Care Team Providers Care Converting Supervisor Name Role Phone Debbie Zavaleta MD Primary Care Provider [phone] Allergies Active AllergyReactionsCriticalityNoted DateCommentsCalcium CarbonateOtherHigh 01/04/2022 Other Reaction(s): Kidney stone causes increased number of kidney stones Medications MedicationSigDispense QuantityRefillsLast FilledStart DateEnd DateStatus cholecalciferol (Vitamin D-3) 50 MCG (1999) capsule Take 1 capsule by mouth once a weekActive coenzyme Q-10 100 MG capsule Take 100 mg by mouth in the morning.Active Lutein-Zeaxanthin 25-5 MG capsule Take 40 mg by mouth in the morning.Active Magnesium Oxide -Mg Supplement 500 MG capsule Take 400 mg by mouth in the morning.Active omega-3 (Fish Oil) 1000 MG capsule Take 1,000 mg by mouth in the morning.Active Active Problems ProblemNoted DateDiagnosed DateRefractive error4Dry eyes10/08/2023ge- related nuclear cataract of both eyes10/08/2023lepharitis of upper and lower eyelids of both eyes10/08/2023 Encounters DateTypeDepartmentCare DyksHcqwgeicwtx24/11/2025 9:15 AM EDTOffice Visit [facility] [address] [place] [phone] Arturo Melo DO Right knee pain, unspecified chronicity (Primary Dx)06/11/2025 8:00 AM EDT Ancillary Procedure [facility] [address] [place] [address] 06/11/20255550Fjmdph59/10/2025Travelfrom Last 3 Months Family History Medical HistoryRelationNameCommentsCancerFatherRobert J. GeerRheumatologic diseaseFather's SisterMarvandanaa PylantFuchs' dystrophyMotherarlene geerRelationName StatusCommentsFatherRobert J. GeerAliveFather's SisterMartha PylantAliveMother nirmala sandy Social History Tobacco UseTypesPacks/DayYears UsedDateSmoking Tobacco: NeverSmokeless Tobacco: Never Tobacco Cessation:Counseling Given: Not Answered Alcohol UseStandard Drinks/WeekCommentsNot Currently0 (1 standard drink = 0.6 oz pure alcohol)About 2 beers a year.CommentsUnknownSex and Gender InformationValueDate RecordedSex Assigned at BirthNot on fileLegal SexFemale 12/13/2022 6:37 PM EDTGender IdentityNot on fileSexual OrientationNot on file Last Filed Vital Signs Vital SignReadingTime TakenCommentsBlood Bandvtrb328/7510 12:00 PM EDT Pulse--Temperature--Respiratory Rate--Oxygen Saturation--Inhaled Oxygen Concentration--Olfkds91.2 kg (126 lb)07/01/2020 12:00 PM TQQEnmthg438.6 cm (5' 6 )06/11/2025 9:05 AM EDTBody Mass Index20.341 12:00 PM EDT Plan of Treatment DateTypeDepartmentCare Team (Latest Contact Info)Ajzsxfgkrbg71/13/2026 9:00 AM ESTOffice Visit [facility] [address] [place] [address] Bryn Rosenberg DO [address] [place] [address] Health MaintenanceDue DateLast DoneCommentsCT Rutnwcebukiz1955Colonoscopy 3Colorectal Cancer Dwoxjujka1955FIT-DNA1955FIT1955 FOBT06/04/19535642Rhhilsxapmozw1955TaP/Tdap/Td Vaccines (1 - Tdap)1960 Fyeeftpuu44/04/1993COVID-19 Vaccine (2024- season)509/07/2025, 12/13/2023, 06/27/2023, Additional history existsPneumococcal Vaccine: 65+ Years Tdmjxqgqd26/21/2025, 07/21/2019, 07/22/2018Influenza GnjvdjbMphlvtrpi71/10/2025, 06/12/2024, 06/27/2023, Additional history existsHIB VaccinesAged OutNo longer eligible based on patient's age to complete this topicHPV VaccinesAged OutNo longer eligible based on patient's age to complete this topicHepatitis A VaccinesAged OutNo longer eligible based on patient's age to complete this topic Hepatitis B VaccinesAged OutNo longer eligible based on patient's age to complete this topicIPV VaccinesAged OutNo longer eligible based on patient's age to complete this topicMeningococcal B VaccineAged OutNo longer eligible based on patient's age to complete this topicMeningococcal VaccineAged OutNo longer eligible based on patient's age to complete this topicRotavirus VaccinesAged Out No longer eligible based on patient's age to complete this topic Procedures Procedure NamePriorityDate/TimeAssociated DiagnosisCommentsXR KNEE 3 VIEWS RIGHT Ffnhtjz9506/11/2025 7:51 AM EDT Right knee pain, unspecified chronicity from Last 3 Months Results * XR knee 3 views right (06/11/2025 7:51 AM EDT)Anatomical RegionLaterality ModalityLower Extremities, KneeRightRadiographic ImagingSpecimen (Source) Anatomical Location / LateralityCollection Method / VolumeCollection Time Received Time Narrative 06/15/2025 6:42 PM EDT Imaging Result: Three views, bilateral PA weight-bearing, sunrise, lateral of the right knee(s) taken today and saved to the permanent medical record are reviewed. Moderate medial compartment joint space narrowing at right knee with marginal osteophytes. Severe PF arthritis right knee Authorizing ProviderResult TypeResult StatusArturo Melo DOIMG XR PROCEDURES Final Result from Last 3 Months Insurance Care Teams Team MemberRelationshipSpecialtyStart DateEnd Debbie Zavaleta MD [address] [place] [phone] PCP - GeneralFamily Medicine06/11/25
== END 2025-08-03 13:04 | disposition home or self-care (01) ==
LOC: PST 13:05
PROVIDERS: PCP Family Medicine; Visit Provider Urology
DX: Z01.818 Encounter for other preprocedural examination (principal); N20.0 Calculus of kidney

== ENCOUNTER 2025-08-06 07:12 | Day surgery (SDC) | payer MEDICARE, BC, SELFPAY ==
--- OUTSIDE RECORDS SUMMARY | 2025-07-23 22:59 | XMS_ITS | Continuity of Care Document ---
Author Organization [facility] Address Unknown Care Team Providers Care Sanitary Plumber Name Role Phone MeghannDebbie mayorga Griffin Primary Care Physician Encounter [facility] [id number] Date(s): 07/23/25 - 07/23/25 [facility] [address] [place] [address]- Discharge Disposition: Home (Routine DC) Attending Physician: Alphonse SANTIAGO MD Admitting Physician: Alphonse SANTIAGO MD Encounter Type: Outpatient Allergies, Adverse Reactions, Alerts SubstanceCriticalitySeverityReactionReaction SeverityStatusTapeLow criticality MildRashActiveCatgut suturenon nlbnktwLndfctCorlbqk3Yewt criticalitySevereKidney stoneActive 1causes increased number of kidney stones Assessment and Plan Future Appointments Appointment Date:12/21/2025 01:15:00 PM Scheduled Provider:Alphonse SANTIAGO MD Location:[facility] Appointment Type:URO Office Visit Future Scheduled Tests Laboratory* Electrolyte Panel 08/01/25 Immunizations Given and Recorded VaccineDateStatusRefusal ReasonSARSCoV2 mRNA(bvllnzicu-uyvq-qbbeuw) vac01/02/22 Recordedinfluenza virus vaccine, inactivated06/27/21Recordedinfluenza virus vaccine, ymzjgevoyob672/06/20Recordedinfluenza virus vaccine, uihwrvywqmt37/21/19 CxfgbYOYG-YhK-1 (COVID-19) mRNA BNT-162b2 vax/47UwhfyxmaKQRN-OzF-6 (COVID- 19) mRNA BNT-162b2 vax3//76JohysdasNKPY-RrB-0 (COVID-19) mRNA BNT-162b2 vax 11/10/20Recordeddiphtheria/pertussis, acel/tetanus adult11/29/19Givenpneumococcal 13-valent yeqikls22/21/19Givenpneumococcal 13-valent qvvlcyx66/21/19Recorded pneumococcal 23-valent jugrhio12Recordedzoster vaccine, inactivated2 06/12/18Recordedzoster vaccine, writmtjlgir29/08/18Recordedzoster vaccine, rtxqiovsngj73/27/12Recorded 1Result Comment: administered with [facility] 2Result Comment: [facility] administered 3Result Comment: [facility] adminsitered, scanned into chart Medications 3 year handicap placard 3 year handicap placard, Print Requisition, Supply Start Date: 01/10/23 Status: Ordered Repeat number: 1 Co-Q10 100 mg, Oral, Daily, Refills(s) 0, Prophylaxis Start Date: 11/26/17 Status: Ordered Repeat number: 1 Effer-K 10 mEq oral tablet, effervescent See Instructions, take 3 tabs in AM and 2 tabs in PM, # 150 tab(s), Refills(s) 1, Pharmacy: [facility], 162, cm, 06/29/25 13:40:00 EDT, Height/Length Dosing, 49.8, kg, 06/29/25 13:40:00 EDT, Weight Dosing Start Date: 06/30/25 Status: Ordered Quantity: 150.0 Unit: tab(s) Repeat number: 2 ibuprofen 400 mg, Oral, Daily, PRN as needed for pain, Refills(s) 0 Start Date: 06/16/21 Status: Ordered Repeat number: 1 Klor-Con/EF 25 mEq oral tablet, effervescent 25 mEq = 1 tab(s), Oral, BID, # 60 tab(s), Refills(s) 11, Pharmacy: [id number], 162, cm, 06/29/25 13:40:00 EDT, Height/Length Dosing, 49.8, kg, 06/29/25 13:40:00 EDT, Weight Dosing Start Date: 07/07/25 Status: Ordered Quantity: 60.0 Unit: tab(s) Repeat number: 12 lutein 40 mg, Oral, Daily, Refill(s) 0 Start Date: 08/18/19 Status: Ordered Repeat number: 1 magnesium aspartate 100 mg, Oral, Daily, Refills(s) 0 Start Date: 08/18/19 Status: Ordered Repeat number: 1 Tylenol 650 mg, Oral, q4hr, PRN as needed for pain, Refills(s) 0 Start Date: 12/14/21 Status: Ordered Repeat number: 1 Vitamin D3 2000 intl units 2,000 International_Unit, Oral, qWeek, Refills(s) 0 Start Date: 08/18/19 Status: Ordered Repeat number: 1 Problem List ConditionConfirmationCourseEffective DatesStatusHealth StatusInformantScanned copy of advance directives on fileConfirmedActiveBody mass index (BMI) of 20.0- 20.9 in adultConfirmedResolvedBody mass index [BMI] 20.0-20.9, adultConfirmed ActiveBilateral renal cystsConfirmedActiveBody mass index [BMI] 19.9 or less, adultConfirmedResolvedFamily history of heart diseaseConfirmedActiveFibrocystic breast diseaseConfirmedActiveRight foot painConfirmedActiveTendinopathy of left gluteal regionConfirmedActiveHistory of melanomaConfirmedActiveHammer toes of both feetConfirmedActiveHistory of kidney stoneConfirmedResolvedIliotibial band syndrome, left legConfirmedActiveKidney stonesConfirmedActiveLeft lumbar radiculopathyConfirmedActiveMedullary sponge kidneyConfirmedActiveMelanoma Uqzuhnotv7168XsuvszogPvidmofplb of multiple sitesConfirmedActivePalpitation ConfirmedActivePSVT (paroxysmal supraventricular tachycardia)ConfirmedActive Primary osteoarthritis of both kneesConfirmedActiveHypocitraturiaConfirmedActive Procedures ProcedureDateRelated DiagnosisBody SiteStatusright L3-5 MBB #212Completed Right L4/5 MBB21CompletedRight L4/5, L5/S1 MBB31Completed Transforaminal Epidural Steroid Otklwlhth007/1/23CompletedEpidural injection of lumbar spine using fluoroscopic /21/23CompletedRadiofrequency ablation of nerve root of lumbar spine using fluoroscopic cszduxcu08CompletedLeft MBB RFA L3-L5CompletedInjection of facet joint using fluoroscopic /26/22CompletedLeft L3-L5 Medial Branch Uzoft392/22/21Completed Ltmxexblbh8820/28/21CompletedHallux ygstqyg180929HidfwldqzVzpojafvve to bilateral knees x3 banjnx68/27/20CompletedColonoscopy normal11/27/17Completed Excision of sentinel lymph node11/2007Completedmelanoma bcpdfuq479290Bfgdpvevu Ttcxmobtowqey6765Ahvsmmsob 1100% relief 2Right L4/5 MBB 3Right L4/5, L5/S1 MBB-90-95% relief x 2 weeks. 4right L3/4, L4/5 TFESI- 80% relief x 2 weeks now 50% 5L5/S1- 100% relief for 3 wks; Current 90% relief 6L3-5 90% relief 7L3-L5 85% Relief 8L3-5 100% x 3 days 9100% relief x2 days 10Right foot-Dr. J Luis Muniz-CC 11right foot 12x 3 Social History Social History TypeResponseSmoking StatusNever (less than 100 in lifetime);Never 1, 2 entered on: 06/29/25Birth SexFemaleSex RepresentationFemale (finding) 1denies 2denies Patient Care team information Care Team Personnel Name: ALMA CEDILLO, PABLO Wallace Position: FT Physician Member Role: Data Analysis Manager Address: [place] [id number] Telecom: Name: J LUIS MUNIZ DPM Position: FT Physician Member Role: Technical Manager Chemical Plant Address: [address] [place] [address]- [place] Telecom: Name: BJ CAMPOS MD Member Role: Data Science And Iot Manager Address: [facility] [address] [place] [address]- [place] Telecom: Name: EDY FRANZ DO Member Role: Orthopaedist Telecom: Name: Maira Lyon Member Role: ProFit: Claims Followup Rep (Administrator Of Home Health) Name: Debbie Zavaleta DO Member Role: Primary Care Physician Address: [address], [facility] [address] [place] [address]- Telecom: Name: BLAKE GREGG MD Position: FT Physician Member Role: Sr. Strategic Sourcing Manager Address: [facility] [address] [place] [address]- Telecom: Name: TONIA HODGES MD Position: FT Physician Member Role: Picker / Packer Address: [address] [place] [address]- [place] Telecom: Name: Bryn Rosenberg DO Position: FT Physician Member Role: Aviation Technician Aircraft Address: [address] [facility] [place] [address]- Telecom: Care Team Related Persons Name: MARY SHUKLA Name: MARY SHUKLA Insurance Providers Guarantor name: TRENT SHUKLA Health Plan Information #: 1 Payer: MEDICARE Payer Identifier: [id number] Member Number: [id number] Group Number: [id number] Subscriber Identifier: [id number] Relationship to Subscriber: self Coverage Type: MEDICARE Coverage Verification Date: 25 Telecom: [phone] Address: [address] [address] Health Plan Information #: 2 Payer: [place] Payer Identifier: [id number] Member Number: [id number] Group Number: [id number] Subscriber Identifier: [id number] Relationship to Subscriber: self Coverage Type: PRIVATE HEALTH INSURANCE Coverage Verification Date: 25 Telecom: AYUSH Address: [facility] [address] [place], [place] [address]
--- NOTE | 2025-08-06 07:15 | XR_ITS ---
The [address] [address] Patient Name: TRENT SHUKLA MRN: [id number] date: 1955 Sex: F Assigned Patient Location: [facility] Current Patient Location: [facility] Accession/Order Number: [id number] Exam Date: 08/06/2025 07:15 Report Date: 08/06/2025 10:16 At the request of: TAMMY SANTIAGO MD Procedure: XR abdomen 1V SINGLE VIEW ABDOMEN CLINICAL DATA: History of kidney stones. Pre lithotripsy. COMPARISON: 07/16/2025 Supine view of the abdomen and pelvis was obtained. There is small and large bowel air, without disproportionate distention. There is mild colonic stool. There are continued small bilateral renal calcifications suggesting stones. These measure up to approximately 5 mm in size. There are no suspect ureteral stones. No soft tissue masses are seen. There is dextroscoliotic curvature and degenerative changes at the spine. There is mild sclerosis at the SI joints. XR/XR abdomen 1V IMPRESSION: CONTINUED BILATERAL NEPHROLITHIASIS. Impression dictated by: Debbie Morse M.D. 08/06/2025 10:16 AM Dictation Location: [place] [address] Electronically authenticated by: [id number] Y Date: 08/06/2025 10:16
--- OUTSIDE RECORDS SUMMARY | 2025-08-06 07:16 | XMS_ITS | Clinical Summary ---
Author Organization [facility] Address [address] [place] [address] Care Team Providers Care Hot Box Checker Name Role Phone Sanya Gould MD Unavailable [phone] Debbie Zavaleta DO Primary Care Provider + Allergies Active AllergyReactionsCriticalityNoted DateCommentsAdhesive Tape (Rosins)Rash, Other: See ImccaslrFyogzy27/01/2008 Patient allergy to tape and steri strips Calcium CarbonateOther: See QlailjtnFszl08/06/2022 causes increased number of kidney stones Medications [...] DatePVD (peripheral vascular disease)07/05/2023 Protein-calorie malnutrition, unspecified ssyhtvav32/01/2023Vasovagal syncope 01/19/2022 Overview (01/19/2022): [place] / IV Assessment & Plan (01/19/2022 1:29 PM EDT): Assessment: typically triggered by needles / IV Skin Cancer, Melanoma, Left Shoulder(HCC)01/19/20229796Svznaxquh96/21/2022Fat pad atrophy of foot2DJD (degenerative joint disease), ankle and foot, right 07/08/2021Metatarsalgia of right foot07/06/2020Hammer toes of both feet 07/06/2020Hallux rigidus of both feet07/06/2020Left elbow pain01/09/2018Trigger point01/09/2018Muscle hbjpacno41/11/2018Calculus of dukcrc8106/26/2017Family history of kidney nexdul4106/26/2017Medullary sponge kidney of both kidneys 06/26/2017History of melanoma jvnabenc22/26/2017Arthritis of knee06/26/2017 Primary osteoarthritis of right knee01/21/2016Pain in joint, pelvic region and thigh09/11/2014Hamstring tear06/07/2012Metatarsal stress /24/2012 MELANOMA Left Lattisimus Dorsi area12/12/2007PSVT (paroxysmal supraventricular tachycardia) Assessment & Plan (01/19/2022 1:29 PM EDT): Assessment: asymptomatic - no meds currently. Follows with Dr. Gould Assessment & Plan (07/12/2021 8:37 AM EDT): Assessment: follows with Dr. Gould - no management recommended. Resolved Problems ProblemNoted DateDiagnosed DateResolved DateArthritis of hip Encounters DateTypeDepartmentCare TyroJcsclrdounz92/07/9850Blehjq17/21/2025 2:00 PM EDT Office Visit Cardiology [address] [place] [address] Randi Daniel APRN.YOUTH LEADER SOB (shortness of breath) (Primary Dx)05/20/2025Travelfrom Last [...] FLULAVAL, FLUZONE)07/16/2017, 06/28/2016influenza (LAIV) vaccine, nasal, unspecified hfvoxjbjnpy78/09/2020 influenza vaccine, whole virus07/18/2011novel influenza (T0D4-61) vaccine, PF 09/13/2009pneumococcal conjugate (PCV13) vaccine, 13 [...] drink = 0.6 oz pure alcohol)PHQ-2AnswerDate RecordedPHQ-2 knpgg7191Area Deprivation Index AnswerDate RecordedNational Score (1-100), lower number is lower risk65 03/21/2023State Score (1-10), lower number is lower blbx8983Data from: https://www.neighborhoodatlas.medicine.[facility].edu/. Last address used for calculation[address]3CommentsNoSex and Gender Information ValueDate RecordedSex Assigned at SdfotAvnqnq36/18/2022 12:56 PM EDTLegal Sex Umismz3009/01/2012 8:12 AM ESTGender OmhzlmpwVkktat41/18/2022 12:56 PM EDTSexual HohhfuyomknAozfchhf28/18/2022 12:56 PM EDTOccupationIndustryJob Start DateJob End DateAdministrative ASISTANTNot on fileNot on fileNot on file Last Filed Vital Signs Vital SignReadingTime TakenCommentsBlood Tvguoogt360/7208 1:31 PM EDT Ebfgf696305/21/2025 1:31 PM UXZMqxnqdhvarz57.4 ??C (97.6 ??F)01/25/2022 11:53 AM EDTRespiratory Ljal454601/25/2022 12:20 PM EDTOxygen Pyfcxklqyx75%05/21/2025 1:31 PM EDTInhaled Oxygen Concentration--Mdzzvu75.2 kg (110 lb 10.7 oz)05/21/2025 1:31 PM CRGNznfsi271.5 cm (5' 4.75 )05/21/2025 1:31 PM EDTBody Mass Index18.56 05/21/2025 1:31 PM EDT Plan of Treatment DateTypeDepartmentCare Team (Latest Contact Info)Irfzowgugli49/18/2025 10:40 AM ESTOffice Visit Dermatology [address] [place], [place] [phone] [place] [address] [place], [place] [phone] 6 MONTH FBSE10/29/2025 11:00 AM ESTOffice Visit Cardiology [address] [place] [address] Chin Haines MD [address] [facility] [place] [address] return in a year in JulHealth MaintenanceDue DateLast DoneCommentsAnxiety Vunazppkd35/04/1971Depression Pxjsmpaaz95/04/1971Mammogram Dbfdqgqyp61/04/1993CT Rkuwswbbqwmo67/04/1998Cologuard (FIT-DNA)06/04/19987759Qezwjkdhkpt75/04/1998 Colorectal Cancer Pfcskccla40/04/1998Fecal Occult Blood1998Sigmoidoscopy 1998Bone Density Grlmlgfdn78/04/2018Medicare Annual Wellness Visit 07/01/2019Advance Directive Tjykrverjr42/01/2025Covid-19 Vaccine ( season)/, 06/12/2024, 12/13/2023, Additional history exists Influenza Vaccine (#1)509/08/2024, 06/27/2023, 06/19/2022, Additional history existsDiabetes Ldmblsmen54/03/2022, 07/05/2020, 01/30/2018, Additional history existsLipid Dxwefvlbb93/03/2022, 07/05/2020, 01/30/2018DTaP,Tdap,Td Vaccine (2 - Td or Tdap)Shingrix ZbogrluHoxmehtry00/12/2018, 04/10/2018, 09/26/2012, Additional history exists Hepatitis C GetzyyfrkGcfnamqfg35/01/2019RSV WdyfmhdDoapqzpux16/03/2023 Pneumococcal Vaccine: 50+Uzlnktybx44/21/2025, 07/21/2019, 07/22/2018 Medical Devices ImplantedTypeAreaManufacturerDevice IdentifierShelf Expiration DateModel / Serial / LotPlate 6 Hole Curved Left - [id number] Implanted:Qty: 1 [facility]16/2020 [facility] FHCPlateRight: Bone - FootSTRYKER [id number] / / Kenan Screw 26 X 30mm [id number] Implanted:Qty: [facility] - FootSMALL BONE [id number] / / Screw Variax 2.7mm T7 Titanium 16mm Bone Lock Lock Plate System Nonsterile - [id number] Implanted:Qty: 2 on 12/16/2020 [facility]: Bone - FootSTRYKER [id number] / / Screw Variax 2.7mm T7 Titanium 14mm Bone Lock Lock Plate System Nonsterile - [id number] Implanted:Qty: 1 on 12/16/2020 [facility]: Bone - FootSTRYKER [id number] / / Screw Variax 2.7mm 10mm Bone T7 Drive Locking Nonsterile Foot - [id number] Implanted:Qty: 1 on 12/16/2020 [facility]: Bone - FootSTRYKER [id number] / / Procedures Procedure NamePriorityDate/TimeAssociated DiagnosisCommentsECG COMPLETE 05/21/2025 1:41 PM EDT COMPREHENSIVE METABOLIC PFEZIJizbvlv62/07/2022 8:25 AM EST Family history of kidney stones LIPID PANEL, UVSRPANBlhzrrg98/07/2022 8:25 AM EST Hyperlipidemia, unspecified hyperlipidemia type HEPATITIS C VIRUS (HCV) RNA, QUANTITATIVE PCR, PLASMA/NWFXHZykpokb55/01/2019 2:26 PM EDT Abnormal liver enzymes from Last 3 Months or Most Recently Relevant to Health Maintenance Results * ECG COMPLETE (05/21/2025 1:41 PM EDT)ComponentValueRef RangeTest Method Analysis TimePerformed AtPathologist SignatureVentricular Chhn43XXNMLALU AND VASCULAR INSTITUTEAtrial Cqxq52YHBODAGA AND VASCULAR INSTITUTEP-R Wnurilni731 msHEART AND VASCULAR INSTITUTEQRS Wwfnbrxp29eaYXBDC AND VASCULAR INSTITUTEQT Rsfunboz663jzZKJYC AND VASCULAR INSTITUTEQTC Calculation (Stanislav)422msHEART AND VASCULAR INSTITUTECalculated P Lezu10pxviaaqAYGAO AND VASCULAR INSTITUTE Calculated R Fitw76howwhcrFJUNX AND VASCULAR INSTITUTECalculated T Axis62 degreesHEART AND VASCULAR INSTITUTESpecimen (Source)Anatomical Location / LateralityCollection Method / VolumeCollection TimeReceived Time05/21/2025 1:41 PM EDT Impressions [facility] - 05/22/2025 11:56 AM EDT NORMAL SINUS RHYTHM POSSIBLE LEFT ATRIAL ENLARGEMENT BORDERLINE ECG Confirmed by MD ALVARENGA QARAB ([id number]) on 05/22/2025 11:56:00 AM Narrative [facility] - 05/22/2025 11:56 AM EDT NAME : AURORA SHUKLA PID : [id number] : 1955 Gender : Female Race : ORD : Procedure Date : May 21 2025 13:41:59 Edit Date : May 22 2025 11:56:04 Diagnosis: NORMAL SINUS RHYTHM POSSIBLE LEFT ATRIAL ENLARGEMENT BORDERLINE ECG Confirmed by MD ALVARENGA QARAB ([id number]) on 05/22/2025 11:56:00 AM Test Reason : Location : 211 : MECARD ?? Overread By : MD ALVARENGA QARAB Edited By : MD ALVARENGA QARAB Referred By : Randi Daniel Acquired by : JOSSELIN YADAV, Authorizing ProviderResult TypeResult StatusCcf ProviderEKGFinal Result Performing OrganizationAddressCity/State/ZIP CodePhone Number [facility] [address] [place] [address] * (ABNORMAL) LIPID PANEL BASIC (09/06/2022 8:25 AM EST)ComponentValueRef Range Test MethodAnalysis TimePerformed AtPathologist HfkdxvrwrCDXSBYPVEPN272(A)120 - 200 mg/dlPEOPLES HOSPITAL HLCNhmgdxfjvall41cc/dlPEOPLES HOSPITAL BUZQVW20 mg/dlPEOPLES HOSPITAL CJZOVO087ui/dlPEOPLES HOSPITAL AUPRPWU6wf/dlPEOPLES HOSPITAL LABSpecimen (Source)Anatomical Location / LateralityCollection Method / VolumeCollection TimeReceived TimeBloodBLOOD SPECIMEN / Pjdjbxw1009/06/2022 8:25 AM EST Narrative Authorizing ProviderResult TypeResult StatusSung Estuardo Gould MDLABORATORYFinal ResultPerforming OrganizationAddressCity/State/ZIP CodePhone Number [facility] [address] [place] [address] * COMP METABOLIC PANEL (09/06/2022 8:25 AM EST)ComponentValueRef RangeTest MethodAnalysis TimePerformed AtPathologist AwksbanncVlrnyjx29ky/dLPEOPLES HOSPITAL LABCreatinine0.7mg/dLPEOPLES HOSPITAL LABALT (SGPT)30U/LCWHITE H[facility]ITAL KWLDUU45W/LCWHITE H[facility]ITAL LABSpecimen (Source)Anatomical Location / LateralityCollection Method / VolumeCollection TimeReceived TimeBloodBLOOD SPECIMEN / Flgxlkq9909/06/2022 8:25 AM EST Narrative Authorizing ProviderResult TypeResult StatusRupinder Nelson APRN.NICOLELABORATORYFinal ResultPerforming OrganizationAddressCity/State/ZIP CodePhone Number [facility] [address] [place] [address] * HCV QUANT RNA BY PCR (12/30/2018 2:26 PM EDT)ComponentValueRef RangeTest MethodAnalysis TimePerformed AtPathologist SignatureHCV RNA by PCRHCV RNA not detected by PCR.IU/mL12/31/2018 9:51 PM EDTCSheltering Arms Hospital Laboratories Comment: Reference Range: Negative for HCV RNA The Linear Range of this assay is 15 IU/mL to 100,000,000 IU/mL. Specimen (Source)Anatomical Location / LateralityCollection Method / Volume Collection TimeReceived TimeBlood specimen (specimen)12/30/2018 2:26 PM EDT 12/30/2018 2:28 PM EDT Narrative Authorizing ProviderResult TypeResult StatusMillicent Schneider MDLABORATORY Final ResultPerforming OrganizationAddressCity/State/ZIP CodePhone Number [facility] [address] [facility] [place] [address] [facility] [address] [place] [address] from Last 3 Months or Most Recently Relevant to Health Maintenance Insurance * Guarantor: Aurora Shukla Kimber TypeRelation to PatientDate of BirthPhone Billing AddressSelf CdrCumt4606/[birth year][address] [place] [address] Advance Directives TypeDate RecordedPatient RepresentativeExplanationAdvance Directive(s)12/16/2020 8:25 AM Care Teams Team MemberRelationshipSpecialtyStart DateEnd Debbie Zavaleta DO [address] [place] [address] PCP - GeneralFamily Medicine03/13/22 Sanya Gould MD [address] [place] [address] Primary Staff PhysicianCardiology12/17/18
--- OUTSIDE RECORDS SUMMARY | 2025-08-06 07:16 | XMS_ITS | Clinical Summary ---
Author Organization [facility] Address [address] [place] [phone] Care Team Providers Care Elevator Mechanic Name Role Phone Unavailable Primary Care Provider Unavailabl e Allergies No known active allergies Medications MedicationSigDispense QuantityRefillsLast FilledStart DateEnd DateStatus Cholecalciferol 50 MCG (1999) capsule Take 1 capsule by mouth Once a week.Active Lutein-Zeaxanthin 25-5 MG capsule Take 40 mg by mouth daily.Active Magnesium 500 MG capsule Take 400 mg by mouth daily.Active [place]-3 Fatty Acids ([place]-3 Fish Oil) 1000 MG capsule Take 1,000 mg by mouth daily.Active Social History Tobacco UseTypesPacks/DayYears UsedDateSmoking Tobacco: NeverSmokeless Tobacco: NeverCommentsUnknownSex and Gender InformationValueDate RecordedSex Assigned at BirthNot on fileLegal KcvKiszdh82/06/2017 6:55 PM ESTGender Identity Not on fileSexual OrientationNot on file Last Filed Vital Signs Vital SignReadingTime TakenCommentsBlood Pressure--Tdfft417808/02/2021 4:05 PM EDT Erpmnvdjkoc52.2 ??C (97.1 ??F)08/02/2021 4:05 PM EDTRespiratory Rate--Oxygen Avyfzfsjzo88%08/02/2021 4:05 PM EDTInhaled Oxygen Concentration--Iqohpv54.2 kg (115 lb)08/02/2021 4:05 PM GZFRkoolu267.6 cm (5' 4 )08/02/2021 4:05 PM EDTBody Mass Index19.7408/02/2021 4:05 PM EDT Plan of Treatment Health MaintenanceDue DateLast DoneCommentsDEXA SCAN MFZZTQCLFA1955 HEPATITIS C VIRUS JVFSVFCOK26/04/7099ZWALIES1953TDAP (ADULT)1972 CERVICAL CANCER SCREENING ALOWZKYPPU27/04/1974LIPID UUDZBPILL36/04/1993MAMMOGRAM SCREENING WQNWHIKEXX27/04/1993COLORECTAL CANCER SCREENING VHIFZWOPCU09/04/1998 PNEUMOCOCCAL VACCINE SERIES (1 of 1 - PCV)2003ZOSTER (SHINGLES) VACCINE (1 of 2)2003COVID-19 VACCINE (1 - 2024- season)2025INFLUENZA VACCINE (#1)2025RSV VACCINE (1 - 1-dose 75+ series)2028HEP B VACCINEAged Out No longer eligible based on patient's age to complete this topic Insurance
--- OUTSIDE RECORDS SUMMARY | 2025-08-06 07:16 | XMS_ITS | Clinical Summary ---
Author Organization [facility] Address [address] [place] [address] Phone Care Team Providers Care Machine Chocolate Molder Name Role Phone Meghann Debbie Griffin GARCIA Primary Care Provider Allergies Active AllergyReactionsCriticalityNoted DateCommentsAdhesive Tape-SiliconesOther ,YvtjFrygfe10/01/2008 Patient allergy to tape and steri strips Calcium CvqmeuazkKefacOcqh20/06/2022 Other Reaction(s): Kidney stone causes increased number of kidney stones causes increased number of kidney stones FarcerrQrooz74/06/2025 Non-healing Medications MedicationSigDispense QuantityRefillsLast FilledStart DateEnd DateStatus [...] 19.9 or less in adult 07/08/2025Never smoked cjmyyxd4807/08/2025Dyspnea on uctrkzxv86/08/2025Iliotibial band swezwtwc49/06/2025ilateral renal cysts07/06/20252514Rhnxiaarlvwdik07/06/2025 Osteopenia of multiple sites07/06/20259515Baketcwmaju94/06/2025PSVT (paroxysmal supraventricular tachycardia)07/06/2025Encounter to establish care07/06/2025PVD (peripheral vascular disease)07/05/2023rotein-calorie tcoujkxswgot15/01/2023 Dbnotf4401/19/2022Vasovagal fagdfdy6501/19/2022 Overview (07/06/2025): Brohman / IV DJD (degenerative joint disease), ankle and foot, right07/08/2021History of melanoma /26/2017Medullary sponge kidney of both iishipo4506/26/2017 Encounters DateTypeDepartmentCare SuseAcoadsekwjo36/21/2025Orders Only [facility] [address] [place] [address] Anthony Toussaint, 07/10/2025Telephone [address] [address] Mackenzie Chirinos RN Error (VOID this visit)07/09/2025Telephone [address] [address] Ann Sarmiento RN 07/08/2025 9:20 AM EDTOffice Visit [address] [address] Anthony Toussaint, Dyspnea on exertion; Body mass index (BMI) of 19.9 or less in adult; Never smoked tobacco; Diastolic dysfunction, left ventricle Discharge Disposition: Home07/08/20255784Yrceog44/06/2025Orders Only [address] [address] Randi Quick LPN from Last 3 Months [...] InformationValueDate RecordedSex Assigned at BirthNot on fileLegal GqdHuijkd41/08/2025 4:00 PM EDTGender Identity Not on fileSexual OrientationNot on file Last Filed Vital Signs Vital SignReadingTime TakenCommentsBlood Luoxdire337/8607/08/2025 9:31 AM EDT Xcdpb203007/08/2025 9:28 AM EDTTemperature--Respiratory Rate--Oxygen Saturation-- Inhaled Oxygen Concentration--Bsezwx13.9 kg (110 lb)07/08/2025 9:28 AM EDTHeight 162.6 cm (5' 4 )07/08/2025 9:28 AM EDTBody Mass Index18.8807/08/2025 9:28 AM EDT Plan of Treatment DateTypeDepartmentCare Team (Latest Contact Info)Bjahwyyzvph01/09/2026 10:10 AM EDTOffice Visit [facility] [address] [place] [address] Anthony Toussaint DO [address] [facility] [address] [place] [address] Health MaintenanceDue DateLast DoneCommentsCT Xkwpjlrtdtkj1953Colonoscopy 3Colorectal Cancer Qovdkhall1953FIT-DNA (Cologuard)1953FIT 1953Lipid Panel1953Medicare Annual Wellness Visit (AWV)1955 Gebgpnsprqchi1953Skin Cancer Hsaqgsdbl1953MMR Vaccines (1 of 1 - Standard series)1954iabetes Qdehvymwo45/04/1971Hepatitis C Screening 1971DTaP/Tdap/Td Vaccines (1 - Tdap)06/04/19753969Uoyepkpjv54/04/1993Bone Density Scan2018COVID-19 Vaccine (2024- season), 12/11/2024, 06/12/2024, Additional history existsZoster VaccinesCompleted 06/12/2018, 04/10/2018RSV High Risk: (Elderly (60+) or Population) Kuscfykaw02/03/2023Pneumococcal GajbhztUzhgemrty39/21/2025, 07/21/2019, 07/22/2018Influenza JdpdlvcCchdcnrvi52/10/2025, 06/12/2024, 06/27/2021, Additional history existsHIB VaccinesAged OutNo [...] Procedures Procedure NamePriorityDate/TimeAssociated DiagnosisCommentsNON-[facility] HIE HIGH SENSITIVE RGVRnicxnu41/21/2025 10:47 AM EDT NON-[facility] HIE D-DIMER HIGH KXKFLKSMKTAVfupuzd74/21/2025 10:47 AM EDT ECG 12-TKQJSwndafg90/08/2025 9:20 AM EDT Dyspnea on exertion from Last 3 Months Results * (ABNORMAL) NON-[facility] HIE High Sensitive CRP (07/21/2025 10:47 AM EDT)Component ValueRef RangeTest MethodAnalysis TimePerformed AtPathologist SignatureNON- HIE High Sensitive CRP1.9(H)0.0 - 0.9 mg/LFMercy Health West Hospital Ctr Comment:Cardiovascular Risk Classification (AHA/CDC) hsCRP [...] this marker for estimation of CVD risk.PERFORMED BY:[facility] [facility], [place] [phone] MEDICAL DIRECTORLINNEA YANES M.D.Specimen (Source)Anatomical Location / Laterality Collection Method / VolumeCollection TimeReceived TimeAMERICAN HOSPITAL ASSOCIATION Lab- Serum specimen 07/21/2025 10:47 AM EDT Narrative Authorizing ProviderResult TypeResult StatusWilianna Toussaint [facility] BLOOD ORDERABLESFinal ResultPerforming OrganizationAddressCity/State/ZIP CodePhone Number [facility] [address] [place] [address], [facility] [address] [place] [address] * NON-[facility] HIE D-Dimer High Sensitivity (07/21/2025 10:47 AM EDT)ComponentValueRef RangeTest MethodAnalysis TimePerformed AtPathologist SignatureNON- HIE D- Dimer High Sensitivity<2000 - 243 ng/mLSamaritan North Health Center CtrComment: The reference range for D-dimer is [...] coagulation studies. Please contact the laboratory at [phone] for redraw instructions.PERFORMED BY:[facility] [place], [place] [phone] MEDICAL DIRECTORLINNEA YANES M.D.Specimen (Source)Anatomical Location / LateralityCollection Method / VolumeCollection TimeReceived TimeFR Platelet poor plasma pjlcacmf13/21/2025 10:47 AM EDT Narrative Authorizing ProviderResult TypeResult StatusMarisolm S Norbert DOLAB BLOOD ORDERABLESFinal ResultPerforming OrganizationAddressCity/State/ZIP CodePhone Number [facility] [address] [place] [address], [facility] [address] [place] [address] * ECG 12 Lead (07/08/2025 9:20 AM EDT)Specimen (Source)Anatomical Location / LateralityCollection Method / VolumeCollection TimeReceived Time Narrative [facility] - 07/08/2025 10:15 AM EDT Normal sinus rhythm normal ECG Authorizing ProviderResult TypeResult StatusWileonm S Norbert DOECG ORDERABLES Final ResultPerforming OrganizationAddressCity/State/ZIP CodePhone Number [facility] from Last 3 Months Insurance Care Teams Team MemberRelationshipSpecialtyStart DateEnd Debbie Zavaleta DO [address] [place] [address] PCP - GeneralFamily Ovslhkit79/8/25
--- OUTSIDE RECORDS SUMMARY | 2025-08-06 07:16 | XMS_ITS | Clinical Summary ---
Author Organization [facility] Address [address] [facility] [place] [address] Care Team Providers Care Animal Daycare Provider Name Role Phone Debbie Zavaleta MD Primary Care Provider [phone] Allergies Active AllergyReactionsCriticalityNoted DateCommentsCalcium CarbonateOtherHigh 01/04/2022 Other [...] lower eyelids of both eyes10/08/2023 Encounters DateTypeDepartmentCare GmxtHzdyhvrlnuo80/11/2025 9:15 AM EDTOffice Visit [facility] [address] [place] [address] Arturo Melo DO Right knee pain, unspecified chronicity (Primary Dx)06/11/2025 8:00 AM EDT Ancillary Procedure [facility] [address] [address] 06/11/20258642Cxmtsx84/10/2025Travelfrom Last 3 Months Family History Medical HistoryRelationNameCommentsCancerFatherRobert [...] Last Filed Vital Signs Vital SignReadingTime TakenCommentsBlood Objmmljc215/7510 12:00 PM EDT Pulse--Temperature--Respiratory Rate--Oxygen Saturation--Inhaled Oxygen Concentration--Euutcr68.2 kg (126 lb)07/01/2020 12:00 PM LBOPazbtk239.6 cm (5' 6 )06/11/2025 9:05 AM EDTBody Mass Index20.341 12:00 PM EDT Plan of Treatment DateTypeDepartmentCare Team (Latest Contact Info)Rdtesuptlxn06/13/2026 9:00 AM ESTOffice Visit [facility] [address] [place] [address] Bryn Rosenberg DO [address] [place] [address] Health MaintenanceDue DateLast DoneCommentsCT Hhrmarqcqikr1953Colonoscopy 3Colorectal Cancer Ioutdwxqi1953FIT-DNA1953FIT1953 FOBT06/04/19537742Ofzdhqzdjgksk53/04/3995Hcislkuxt64/04/1993COVID-19 Vaccine (2024- season)5006/10/2025, 12/13/2023, 06/27/2023, Additional history existsPneumococcal Vaccine: 65+ KbvsdCitrhmlig07/21/2025, 07/21/2019, 07/22/2018 Influenza VcywzadXnjzvsmrs95/10/2025, 06/12/2024, 06/27/2023, Additional history exists Procedures Procedure NamePriorityDate/TimeAssociated DiagnosisCommentsXR KNEE 3 VIEWS RIGHT Ohfgjtz0306/11/2025 7:51 AM EDT Right knee pain, unspecified [...] Team MemberRelationshipSpecialtyStart DateEnd Debbie Zavaleta MD [address] [facility] [place] [address] [facility]06/11/25
[2025-08-06 07:30] VITALS: BP 143/87; PULSE 64; TEMP 36.3; O2SAT 100; BMI 19.0
[2025-08-06] MEDS: CEFAZOLIN SODIUM 2 GM/50 ML D5W PREMIX IV (08:48)
--- NOTE | 2025-08-06 09:21 | PM.URSON ---
Urology Surgery Operative Note Operative Note Procedure Date: 08/06/25 Time Out Performed: yes Pre-op Diagnosis: Right nephrolithiasis Post-op Diagnosis: same as pre-op Procedures performed: 1. Right ESWL. Anesthesia: General-LMA Primary Surgeon: Alphonse Denny Complications: none Estimated blood loss (mL): 0 Findings: 1. Right lower pole renal calculus. Specimens: None Indications for Procedures: This lady had a fairly large stone burden on the right side consisting of a 1 cm upper pole stone and a 5 mm lower pole stone. She had right ESWL done last month for her larger 1 cm stone. She now presents for a second treatment on the right side to finish clearing all of her remaining stone burden. She has signed an informed consent after risks were explained. Some of these risks include bleeding, perinephric hematoma, infection and anesthesia to name a few. Detailed description of Procedure: The patient was brought to the Operating Room and placed on Siemens electromagnetic lithotripsy treatment table in the supine position. SCDs were placed on their lower extremities and turned on and functioning during the entire case. Timeout was done by all parties in the room. We all agreed upon the patient's identification and the planned procedures for this patient. General Anesthesia was then administered via LMA. Treatment head was then brought to the patient's right side. While using flourscopy the lower pole stone was identified and lined up into the crosshairs. We then began applying shocks. I started at power level 2.0 and increased to a maximum power level of 3.2. Intermittent fluoroscopy revealed that the stone was slow to fragment. We began seeing significant fragmentation after 1500 shocks. She did have 2 episodes of ectopy in the form of PVCs. We stopped the treatment and repositioned her on the table. This solved the problem both times. We applied a total of 2500 shocks. We had total fragmentation. The last fluoroscopic view revealed no evidence of any formed stone remaining on the right side. The procedure was then terminated. She was then transferred to a rgoodwell bed and wheeled to PACU in stable condition.
[2025-08-06 09:29] VITALS: BP 133/79; PULSE 61; TEMP 36.5; O2SAT 99
[2025-08-06 09:59] VITALS: BP 144/76; PULSE 63; O2SAT 100
[2025-08-06 10:30] VITALS: BP 111/77; PULSE 60; O2SAT 100
--- NOTE | 2025-08-06 10:53 | PC.NURSE ---
1045: pt ambulates to bathroom,voids without difficulty. urine red,no clots.urine strained no stone fragments noted.
== END 2025-08-06 10:55 | disposition home or self-care (01) ==
LOC: SURGOUT 07:13
PROVIDERS: PCP Family Medicine; Visit Provider Urology
PROC: (CPT 50590; principal; 2025-08-06 08:30)
DX: N20.0 Calculus of kidney (principal); M85.80 Other specified disorders of bone density and structure, unspecified site; Z85.820 Personal history of malignant melanoma of skin; N28.1 Cyst of kidney, acquired; I47.10 Supraventricular tachycardia, unspecified; M19.90 Unspecified osteoarthritis, unspecified site
CPT/HCPCS: 50590; 74018; J0690; J1100; J2250; J2405; J2704; J3010